=== PATIENT | female | born 2000 | race Two or more races ===

== ENCOUNTER 2024-08-06 13:10 | Observation (INO) | payer OTHER ==
[~2024-08-06] VITALS: Ht 154.9 cm; Wt 76.2 kg
[2024-08-06] MEDS ORDERED: PREN-96 PO (14:29)
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
== END 2024-08-06 15:17 | disposition home or self-care (01) ==
LOC: LDRP 13:10
PROVIDERS: ADMIT Obstetrics & Gynecology; ATTEND Obstetrics & Gynecology
DX: O26.892 Other specified pregnancy related conditions, second trimester (principal); L08.89 Other specified local infections of the skin and subcutaneous tissue; Z98.890 Other specified postprocedural states; Z79.899 Other long term (current) drug therapy; Z88.0 Allergy status to penicillin; Z3A.35 35 weeks gestation of pregnancy
CPT/HCPCS: 59025; 76805; 81002; 94760; G0378